=== PATIENT | female | born 1970 | race Caucasian/White ===

== ENCOUNTER 2023-09-18 06:07 | Emergency (ER) | payer OTHER ==
[~2023-09-18] VITALS: Ht 167.6 cm; Wt 76.2 kg
[2023-09-18] MEDS ORDERED: NEURONTIN300 MG PO (06:30)
[2023-09-18] MEDS ORDERED: RELAFEN DS1000 MG (06:30)
== END 2023-09-18 09:39 | disposition home or self-care (01) ==
LOC: ER 06:07
DX: F41.9 Anxiety disorder, unspecified (principal); R07.89 Other chest pain; I10 Essential (primary) hypertension